=== PATIENT | female | born 1980 | race Two or more races ===

== ENCOUNTER 2020-06-05 14:58 | Outpatient (CLI) | payer BC, OTHER | END 2020-06-05 23:59 | disposition home or self-care (01) | LOC: MSC 14:58 | PROVIDERS: ATTEND Internal Medicine | DX: M51.36 Other intervertebral disc degeneration, lumbar region (principal); N63.0 Unspecified lump in unspecified breast; K46.9 Unspecified abdominal hernia without obstruction or gangrene; L57.0 Actinic keratosis; G43.909 Migraine, unspecified, not intractable, without status migrainosus; Z84.81 Family history of carrier of genetic disease; N80.9 Endometriosis, unspecified; Z98.1 Arthrodesis status; Z79.891 Long term (current) use of opiate analgesic ==

== ENCOUNTER 2020-07-17 15:30 | Outpatient (CLI) | payer BC | END 2020-07-17 23:59 | disposition home or self-care (01) | LOC: MSC 15:30 | PROVIDERS: ATTEND Internal Medicine | DX: M51.36 Other intervertebral disc degeneration, lumbar region (principal); N63.0 Unspecified lump in unspecified breast; K46.9 Unspecified abdominal hernia without obstruction or gangrene; L57.0 Actinic keratosis; G43.909 Migraine, unspecified, not intractable, without status migrainosus; N80.9 Endometriosis, unspecified; H93.8X2 Other specified disorders of left ear; Z79.891 Long term (current) use of opiate analgesic ==

== ENCOUNTER 2020-09-15 14:34 | Outpatient (CLI) | payer BC | END 2020-09-15 23:59 | disposition home or self-care (01) | LOC: MSC 14:34 | PROVIDERS: ATTEND Internal Medicine | DX: Z01.818 Encounter for other preprocedural examination (principal); K46.9 Unspecified abdominal hernia without obstruction or gangrene; N80.9 Endometriosis, unspecified; N63.0 Unspecified lump in unspecified breast; Z84.81 Family history of carrier of genetic disease; M51.36 Other intervertebral disc degeneration, lumbar region; L57.0 Actinic keratosis; G43.909 Migraine, unspecified, not intractable, without status migrainosus; Z79.891 Long term (current) use of opiate analgesic ==

== ENCOUNTER 2020-11-03 13:01 | Outpatient (CLI) | payer BC | END 2020-11-03 23:59 | disposition home or self-care (01) | LOC: MSC 13:01 | PROVIDERS: ATTEND Internal Medicine | DX: K46.9 Unspecified abdominal hernia without obstruction or gangrene (principal); M72.2 Plantar fascial fibromatosis; R63.5 Abnormal weight gain; Z68.33 Body mass index [BMI] 33.0-33.9, adult; M51.36 Other intervertebral disc degeneration, lumbar region; N63.0 Unspecified lump in unspecified breast; L57.0 Actinic keratosis; G43.909 Migraine, unspecified, not intractable, without status migrainosus; N80.9 Endometriosis, unspecified; Z84.81 Family history of carrier of genetic disease; Z83.3 Family history of diabetes mellitus; Z80.3 Family history of malignant neoplasm of breast ==

== ENCOUNTER 2020-12-20 10:31 | Outpatient (CLI) | payer BC | END 2020-12-20 23:59 | disposition home or self-care (01) | LOC: MSC 10:31 | PROVIDERS: ATTEND Internal Medicine | DX: Z01.818 Encounter for other preprocedural examination (principal); K46.9 Unspecified abdominal hernia without obstruction or gangrene; N80.9 Endometriosis, unspecified; E27.40 Unspecified adrenocortical insufficiency; M72.2 Plantar fascial fibromatosis; R63.5 Abnormal weight gain; Z84.81 Family history of carrier of genetic disease; N63.0 Unspecified lump in unspecified breast; M51.36 Other intervertebral disc degeneration, lumbar region; G43.909 Migraine, unspecified, not intractable, without status migrainosus; Z79.899 Other long term (current) drug therapy ==

== ENCOUNTER → 2021-01-22 | Outpatient (CLI) | payer BC | END | disposition home or self-care (01) | LOC: MSC 14:30 | PROVIDERS: ATTEND Internal Medicine | DX: N80.9 Endometriosis, unspecified (principal); K46.9 Unspecified abdominal hernia without obstruction or gangrene; E27.40 Unspecified adrenocortical insufficiency; M72.2 Plantar fascial fibromatosis; R63.5 Abnormal weight gain; Z84.81 Family history of carrier of genetic disease; M51.36 Other intervertebral disc degeneration, lumbar region; N63.0 Unspecified lump in unspecified breast; Z80.3 Family history of malignant neoplasm of breast; Z83.3 Family history of diabetes mellitus; G43.909 Migraine, unspecified, not intractable, without status migrainosus ==

== ENCOUNTER 2021-04-19 10:59 | Outpatient (CLI) | payer BC | END 2021-04-19 23:59 | disposition home or self-care (01) | LOC: MSC 10:59 | PROVIDERS: ATTEND Internal Medicine | DX: F41.9 Anxiety disorder, unspecified (principal); N63.0 Unspecified lump in unspecified breast; Z84.81 Family history of carrier of genetic disease; K46.9 Unspecified abdominal hernia without obstruction or gangrene; E27.40 Unspecified adrenocortical insufficiency; Z90.710 Acquired absence of both cervix and uterus; M72.2 Plantar fascial fibromatosis; R63.5 Abnormal weight gain; M51.36 Other intervertebral disc degeneration, lumbar region; G43.909 Migraine, unspecified, not intractable, without status migrainosus ==